=== PATIENT | male | born 1950 | race Caucasian/White ===

== ENCOUNTER 2018-10-03 13:49 | Emergency (ER) | payer OTHER, MEDICARE ==
[2018-10-03 13:56] VITALS: TEMP 97.5; BMI 28.2
--- NOTE | 2018-10-03 14:21 | PDOC ---
Attending Attestation - Resident Resident Name: Shaji Ramsay - ED Attending Attestation I have performed the following: I have examined & evaluated the patient, The case was reviewed & discussed with the resident, I agree w/resident's findings & plan, Exceptions are as noted - HPI HPI: 10/03/18 15:09 Mr Burnett is a 68 yo M h/o HTN, BPH, chronic headaches, anxiety, glaucoma, retinal eye surgery years ago, and asthma who presents to the ER with a headache present for the past 6 weeks. He has tried taking eletriptan and other OTC meds which have not helped him relieve his current headache. Headache is located diffusely all over the top of the head, rated 10/10, no radiation to the neck (+) dizziness (+) photophobia/phonophobia No head trauma No fevers or chills PCP: Ju Lopez - [phone] PSH: Retinal eye surgery repair Allergies: Penicillins Social Hx: Smoked 25+ years ago. Denies current alcohol, cigarettes, or illicit drug usage. - Physicial Exam PE: 10/03/18 15:40 GENERAL: Well-appearing, well-nourished. wearing sunglasses HEENT: Normocephalic, atraumatic. PERRL, EOM intact. CARDIOVASCULAR: Normal S1, S2. Regular rate and rhythm. PULMONARY: No evidence of respiratory distress. Lungs clear to auscultation bilaterally. No wheezing, rales or rhonchi. ABDOMEN: Soft, non-distended, non-tender. EXTREMITIES: Normal ROM in all four extremities. No gross deformities. SKIN: Warm, dry. No rash NEUROLOGICAL: Alert, awake, appropriate. Cranial nerves 2-12 intact. No deficits to light touch in face, upper extremities and lower extremities. No motor deficits in the in face, upper extremities and lower extremities. - Medical Decision Making 10/03/18 15:41 68 yo M with a history of chronic headaches presenting with a headache No head trauma No fevers or chills Will do: Labs Headache medications Re Assess 10/03/18 16:12 EKG - NSR rate of 74 bpm, nml axis, no st elevation or depression, t waves upright 10/03/18 16:13 Laboratory Tests 10/03/18 10/03/18 15:10 15:10 WBC 6.6 Hgb 16.5 Hct 47.6 Plt Count 218 Sodium 134 L Potassium 4.7 Chloride 95 L Carbon Dioxide 34 H BUN 12.3 Creatinine 1.4 H Random Glucose 110 H C-Reactive Protein < 0.3 Will re assess 10/03/18 17:03 CT demonstrates no acute pathology Pt states he feels better Will discharge to home Follow up with PMD and headache clinic Clinical impression: return of chronic headache
--- NOTE | 2018-10-03 14:25 | PDOC ---
History of Present Illness - General Chief Complaint: Headache Stated Complaint: HEADACHE Time Seen by Provider: 10/03/18 14:11 History Source: Patient Exam Limitations: No Limitations - History of Present Illness Initial Comments: Mal Burnett is a 69 yo M w a hx of HTN, BPH, chronic headaches, anxiety, glaucoma, retinal eye surgery years ago, and asthma who presents to the ER with a headache he has had for the past 6 weeks. The patient states he has suffered from headaches his entire life. He has been worked up for these headaches by multiple neurologist's, received MRI's for this headache, received electric nervous stimulation of the neck and it had disappeared for a long time. 6 weeks ago the headaches came back and the patient states he has not had any imaging done for his head in the past 6 weeks since this headache began. He has tried taking eletriptan and other OTC meds which have not helped him relieve his current headache. He states his headache is diffusely all over the top of the head and not worse on one particular side. He also endorses a dizziness described as lightheaded feeling which is associated with the headache. Patient endorses significant photophobia and phonophobia. The patient was referred to a specialized migraine treatment clinic for which they called and are awaiting a call back to schedule an appointment with. The patient denies recent fevers, chills, infections, or neck pain. He denies worsening of his pain with chewing foods. Denies any chest pain, SOB, difficulty breathing, back pain, abdominal pain, dysuria, frequency, or urgency. PCP: Ju Lopez - [phone] PSH: Retinal eye surgery repair Allergies: Penicillins Social Hx: Smoked 25+ years ago. Denies current alcohol, cigarettes, or illicit drug usage. Meds: 1) timolol 025% 2) latanoprost 0.005% 3) inhaler PRN 4) Tamsulosin 0.4 mg 5) Valsartan HCTZ 160 - 12.5 6) Amlodipine 5 mg 7) clonazepam 0.5 Past History - Past Medical History Allergies/Adverse Reactions: Allergies Allergy/AdvReac Type Severity Reaction Status Date / Time Penicillins Allergy Verified 10/03/18 13:56 COPD: No HTN: Yes Other medical history: glaucoma, retinal detachment, migraines - Suicide/Smoking/Psychosocial Hx Smoking History: Never smoked Review of Systems - Review of Systems Able to Perform ROS?: Yes Comments:: CONSTITUTIONAL: Absent: fever, no chills, no fatigue EYES: Absent: visual changes ENT: Absent: ear pain, no sore throat CARDIOVASCULAR: Absent: chest pain, no palpitations RESPIRATORY: Absent: cough, no SOB GI: Absent: abdominal pain, no nausea, no vomiting, no constipation, no diarrhea GENITOURINARY: Absent: dysuria, no frequency, no hematuria MUSKULOSKELETAL: Absent: back pain, no arthralgia, no myalgia SKIN: Absent: rash NEURO: Present: headache *Physical Exam - Vital Signs Last Vital Signs Temp Pulse Resp BP Pulse Ox 97.5 F L 91 H 18 149/86 99 10/03/18 13:52 10/03/18 13:52 10/03/18 13:52 10/03/18 13:52 10/03/18 13:52 - Physical Exam Comments: GENERAL: Wearing sunglasses bc light hurts his eyes. Well-appearing, well-nourished. No apparent distress. HEENT: Normocephalic, atraumatic. PERRL, EOM intact. CARDIOVASCULAR: Normal S1, S2. Regular rate and rhythm. PULMONARY: No evidence of respiratory distress. Lungs clear to auscultation bilaterally. No wheezing, rales or rhonchi. ABDOMEN: Soft, non-distended, non-tender. EXTREMITIES: Normal ROM in all four extremities. No gross deformities. SKIN: Warm, dry. No rash NEUROLOGICAL: Alert, awake, appropriate. Cranial nerves 2-12 intact. No deficits to light touch in face, upper extremities and lower extremities. No motor deficits in the in face, upper extremities and lower extremities. No pronator drift. Normal speech. Gait is normal without ataxia. No dysmetria. No dysdiadochokinesis. No skew deviation. No abnormal nystagmus. ED Treatment Course - LABORATORY CBC & Chemistry Diagram: 10/03/18 15:10 10/03/18 15:10 - RADIOLOGY Radiograph Interpretation: Head CT: Rule out mass CT scan of the head without intravenous contrast. No prior is available for comparison. There is outo-mi-ozeoicae volume loss and ventricular dilatation. Mild periventricular microvascular ischemic disease changes are present. No mass lesion, gross acute infarct or intracranial hemorrhage are identified. There is no shift of the midline structures. Visualized paranasal sinuses and mastoid air cells are well aerated. The calvarium is intact. Note is made of a surgical radiopaque band around the left eye globe. IMPRESSION: Wpjc-cc-tlyrrsws volume loss without CT evidence of acute intracranial pathology. Notes made of a radiopaque surgical band around the left thyroid lobe. Medical Decision Making - Medical Decision Making Mal Burnett is a 69 yo M w a hx of HTN, BPH, chronic headaches, anxiety, glaucoma, retinal eye surgery years ago, and asthma who presents to the ER with a headache he has had for the past 6 weeks. The patient states he has suffered from headaches his entire life. He has been worked up for these headaches by multiple neurologist's, received MRI's for this headache, received electric nervous stimulation of the neck and it had disappeared for a long time. 6 weeks ago the headaches came back and the patient states he has not had any imaging done for his head in the past 6 weeks since this headache began. He has tried taking eletriptan and other OTC meds which have not helped him relieve his current headache. He states his headache is diffusely all over the top of the head and not worse on one particular side. He also endorses a dizziness described as lightheaded feeling which is associated with the headache. Patient endorses significant photophobia and phonophobia. The patient was referred to a specialized migraine treatment clinic for which they called and are awaiting a call back to schedule an appointment with. Vital Signs Temp Pulse Resp BP Pulse Ox 97.5 F L 91 H 18 149/86 99 10/03/18 13:52 10/03/18 13:52 10/03/18 13:52 10/03/18 13:52 10/03/18 13:52 DDx IBNLT: Headache - migraine vs cluster vs tension, CVA, brain mass, electrolyte/metabolic disturbance, trigeminal neuralgia, Giant cell arteritis Plan: Labs, EKG, Head CT, analgesia, IV hydration, re-assess. Labs: Labs remarkable for an elevated Cr of 1.4. - Patient advised to discuss this finding with his PCP. - ESR/CRP normal. EKG: Normal Sinus, rate of 74. QTc 444 - Safe to give Reglan Head CT: IMPRESSION: Bpuy-dl-cjaxubfh volume loss without CT evidence of acute intracranial pathology. Notes made of a radiopaque surgical band around the left thyroid lobe. Re-assessment: Patient feels better after Migraine cocktail and requests to be discharged. Disposition: Will send patient home with PCP and Neuro Migraine specialist follow up *DC/Admit/Observation/Transfer Diagnosis at time of Disposition: Migraine - Discharge Dispostion Disposition: HOME Condition at time of disposition: Improved Decision to Admit order: No - Referrals Referrals: Ju Lopez MD [Primary Care Provider] - - Patient Instructions Printed Discharge Instructions: Migraine Headaches (Alternative Therapy), Migraine -- Adult Additional Instructions: You came into the ER with a bad migraine. We did a cat scan and found no abnormalities. You felt better after the medications we gave you. Please make sure to schedule a follow up appointment with both your primary care doctor and the migraine specialist to get your migraines under control. Your Creatinine level was elevated at 1.4. please make sure to discuss this finding with your primary care provider at your follow up appointment. Come back to the Er immediately if your pain worsens, you start vomiting, get a fever, have neck pain, or any other new or worsening concerns. Thank you for coming to the [facility] ER. We hope you feel better soon! Print Language: HEBREW - Post Discharge Activity
[2018-10-03] MEDS ORDERED: SODIUM CHLORIDE 1,000 ML IV STA (14:44)
[2018-10-03] MEDS ORDERED: METOCLOPRAMIDE HCL INJECTION 10 MG/2 ML VIAL IVPUSH ONE (14:46)
[2018-10-03] MEDS ORDERED: ACETAMINOPHEN 1000 MG/100 ML VIAL (NON FORMULARY) IVPB ONE (14:46)
[2018-10-03] MEDS ORDERED: METOCLOPRAMIDE HCL INJECTION 10 MG/2 ML VIAL ONE (14:54)
[2018-10-03] MEDS ORDERED: ACETAMINOPHEN INJECTION 100 ML IVPB ONE (14:54)
[2018-10-03 15:31] LABS: BASO % 0.7 % (0-2.0); EOS % 1.5 % (0-4.5); HEMATOCRIT 47.6 % (35.4-49); HEMOGLOBIN 16.5 GM/dL (11.7-16.9); LYMPH % 22.2 % (8-40); MCH 33.3 pg (25.7-33.7); MCHC 34.6 g/dl (32.0-35.9); MEAN CELL VOLUME 96.2 fl (80-96); MEAN PLT VOLUME 8.2 fl (7.5-11.1); MONO % 11.6 % (3.8-10.2); RBC 4.95 M/mm3 (4.00-5.60); RDW 12.8 % (11.9-15.9); WHITE BLOOD COUNT 6.6 K/mm3 (4.0-10.0)
[2018-10-03 15:43] LABS: PLATELET COUNT 218 K/MM3 (134-434)
[2018-10-03 15:56] LABS: ALBUMIN 4.4 g/dl (3.4-5.0); ALK PHOS 76 U/L (45-117); ANION GAP 5 MMOL/L (8-16); BILIRUBIN,TOTAL 0.5 mg/dL (0.2-1); BLOOD UREA NITROGEN 12.3 mg/dL (7-18); CALCIUM 10.5 mg/dL (8.5-10.1); CHLORIDE 95 mmol/L (98-107); CO2 34 mmol/L (21-32); CREATININE 1.4 mg/dL (0.55-1.3); GLUCOSE,RANDOM 110 mg/dL (74-106); POTASSIUM 4.7 mmol/L (3.5-5.1); SGOT/AST 19 U/L (15-37); SGPT/ALT 27 U/L (13-61); SODIUM 134 mmol/L (136-145); TOT PROT 7.5 g/dl (6.4-8.2)
[2018-10-03 17:48] VITALS: BP 135/72; PULSE 76
--- NOTE | 2018-10-04 13:11 | EKG ---
Test Reason : Blood Pressure : / mmHG Vent. Rate : 074 BPM Atrial Rate : 074 BPM P-R Int : 172 ms QRS Dur : 096 ms QT Int : 400 ms P-R-T Axes : 044 -28 -13 degrees QTc Int : 444 ms NORMAL SINUS RHYTHM LEFT ATRIAL ENLARGEMENT NONSPECIFIC ST ABNORMALITY ABNORMAL ECG NO PREVIOUS ECGS AVAILABLE Confirmed by MD KENDY, INES ([id number]) on 10/04/2018 1:10:58 PM Referred By: Confirmed By:INES LARRY MD
== END 2018-10-03 17:48 | disposition home or self-care (01) ==
LOC: EDBD 13:49 → JER 13:49
PROC: 3E033GC Introduction of Other Therapeutic Substance into Peripheral Vein, Percutaneous Approach (ICD-10-PCS; principal; 2018-10-03)
PROC: 3E033NZ Introduction of Analgesics, Hypnotics, Sedatives into Peripheral Vein, Percutaneous Approach (ICD-10-PCS; 2018-10-03)
DX: G43.909 Migraine, unspecified, not intractable, without status migrainosus (principal); I10 Essential (primary) hypertension; N40.0 Benign prostatic hyperplasia without lower urinary tract symptoms; F41.9 Anxiety disorder, unspecified; H20.9 Unspecified iridocyclitis
CPT/HCPCS: 36415; 70450-TC; 80053; 85025; 85651; 86140; 93005; 93010; 96374; 96375; 99282-25; J0131; J7030

== ENCOUNTER 2018-10-25 20:08 | Emergency (ER) | payer OTHER, MEDICARE | END 2018-10-25 23:40 | disposition home or self-care (01) | LOC: JER 20:08 ==